=== PATIENT | female | born 1990 | race Caucasian/White ===

== ENCOUNTER 2017-01-20 08:17 | Emergency (ER) | payer OTHER ==
[2017-01-20] MEDS: IV NORMAL SALINE 1,000ML 1,000 ML IV ONE (08:57)
[2017-01-20] MEDS: ONDANSETRON PF 4 MG/2 ML VIAL. IV ONE (08:58)
[2017-01-20] MEDS: FAMOTIDINE 20 MG/2 ML VIAL IVP ONE (08:58)
[2017-01-20 08:59] LABS: BASO % 1 % (0-3); EOS # 0.2 x10^3/uL (0.0-0.7); EOS % 4 % (0-3); HEMATOCRIT 41.2 % (36.0-47.0); HEMOGLOBIN 13.9 g/dL (12.0-15.5); LYMPH # 1.7 x10^3/uL (1.0-4.8); LYMPH % 30 % (24-48); MEAN CORPUSCULAR HEMOGLOBIN 31 pg (25-35); MEAN CORPUSCULAR HGB CONC 34 g/dL (31-37); MEAN CORPUSCULAR VOLUME 92 fL (79-100); MONO # 0.5 x10^3/uL (0.0-1.1); MONO % 9 % (0-9); NEUT # 3.2 x10^3uL (1.8-7.7); NEUT % 57 % (31-73); PLATELET COUNT 197 x10^3/uL (140-400); RED BLOOD COUNT 4.48 x10^6/uL (3.50-5.40); WHITE BLOOD COUNT 5.7 x10^3/uL (4.0-11.0)
[2017-01-20 09:09] LABS: ALBUMIN 4.1 g/dL (3.4-5.0); ALBUMIN/GLOBULIN RATIO 1.2 (1.0-1.7); CALCIUM 9.1 mg/dL (8.5-10.1); CREATININE 0.8 mg/dL (0.6-1.0); GFR 86.7; POTASSIUM 3.4 mmol/L (3.5-5.1); TOTAL BILIRUBIN 0.3 mg/dL (0.2-1.0); TOTAL PROTEIN 7.6 g/dL (6.4-8.2)
[2017-01-20 10:12] VITALS: BP 123/66
--- NOTE | 2017-01-20 12:17 | EKG ---
[address] [address] Test Date: 2017-01-20 Test Time: 08:35:06 Pat Name: MIGDALIA BOLTON Department: Room: Gender: F Product Merchandiser: P3 : 1990 Requested By: ASHIA REDMOND Order Number: [id number] Reading MD: Measurements Intervals [place] Rate: 91 P: 59 WV: 188 QRS: 13 QRSD: 84 T: 31 QT: 352 QTc: 435 Interpretive Statements SINUS RHYTHM NO SPECIFIC ECG ABNORMALITIES RI6.01 Unconfirmed report No previous ECG available for comparison
--- NOTE | 2017-01-24 09:19 | ED.ADGEN ---
Past History Past Medical History: No Pertinent History Past Surgical History: No Surgical History Alcohol Use: Rarely Drug Use: None Adult General Chief Complaint Chief Complaint Left shoulder pain, neck pain, nausea HPI HPI Patient is a 26-year-old female who presents with left-sided shoulder, jaw pain and chest tightness. The onset was yesterday. No fever chills, nausea vomiting sweats. Left jaw pain radiates to her left ear. Denies dental caries, ear pain or sinus tenderness. Left shoulder pain reproduces with palpation. Patient reports nausea without vomiting and chest tightness denies chest pain. No abdominal pain. No other acute symptoms or complaints. Patient is currently a physical therapy student and was looking up her symptoms on the Internet and is concerned about possible coronary disease. Patient does not have traditional coronary risk factors nonsmoker. Review of Systems Review of Systems Review symptoms as per history of present illness. All other review symptoms are negative. Current Medications Current Medications Current Medications Medications (Trade) Dose Ordered Sig/Dung Start Time Stop Time Status Last Admin Dose Admin Famotidine 20 mg 20 mg 1X ONCE 01/20/17 08:30 01/20/17 09:00 DC 01/20/17 08:58 20 MG Ondansetron HCl (Zofran) 4 mg 1X ONCE 01/20/17 08:30 01/20/17 09:00 DC 01/20/17 08:58 4 MG Sodium Chloride (Iv Sodium Chloride 0.9% 1,000ml) 1,000 ml @ 1,000 mls/hr 1X ONCE 01/20/17 08:30 01/20/17 09:29 DC 01/20/17 08:57 1,000 MLS/HR Allergies Allergies Allergies Coded Allergies Type Severity Reaction Last Updated Verified amoxicillin Allergy Unknown 01/20/17 Yes clavulanic acid Allergy Unknown 01/20/17 Yes montelukast Allergy Unknown 01/20/17 Yes Physical Exam Physical Exam Constitutional: Well developed, well nourished, no acute distress, non-toxic appearance. HENT: Normocephalic, atraumatic, bilateral external ears normal, oropharynx moist, no oral exudates, nose normal. Eyes: PERRLA, EOMI, conjunctiva normal. Neck: Normal range of motion, no tenderness, supple. Cardiovascular:Heart rate regular rhythm, no murmur. Lungs & Thorax: Bilateral breath sounds clear to auscultation. Abdomen: Bowel sounds normal, soft, no tenderness. Skin: Warm, dry, no erythema. Back: No tenderness. Extremities: No tenderness. Neurologic: Alert and oriented X 3, normal motor function, normal sensory function, no focal deficits noted. Psychologic: Affect normal, judgement normal, mood normal. Current Patient Data Vital Signs Vital Signs Date Time Temp Pulse Resp B/P Pulse Ox O2 Delivery O2 Flow Rate FiO2 01/20/17 10:12 94 18 123/66 99 Room Air 01/20/17 08:22 98.4 Lab Results Laboratory Tests Test 01/20/17 08:39 White Blood Count 5.7x10^3/uL (4.0-11.0) Red Blood Count 4.48x10^6/uL (3.50-5.40) Hemoglobin 13.9g/dL (12.0-15.5) Hematocrit 41.2% (36.0-47.0) Mean Corpuscular Volume 92fL (79-100) Mean Corpuscular Hemoglobin 31pg (25-35) Mean Corpuscular Hemoglobin Concent 34g/dL (31-37) Red Cell Distribution Width 13.0% (11.5-14.5) Platelet Count 197x10^3/uL (140-400) Neutrophils (%) (Auto) 57% (31-73) Lymphocytes (%) (Auto) 30% (24-48) Monocytes (%) (Auto) 9% (0-9) Eosinophils (%) (Auto) 4% (0-3) H Basophils (%) (Auto) 1% (0-3) Neutrophils # (Auto) 3.2x10^3uL (1.8-7.7) Lymphocytes # (Auto) 1.7x10^3/uL (1.0-4.8) Monocytes # (Auto) 0.5x10^3/uL (0.0-1.1) Eosinophils # (Auto) 0.2x10^3/uL (0.0-0.7) Basophils # (Auto) 0.0x10^3/uL (0.0-0.2) D-Dimer (Kiesha) 0.43mg/L (0.00-0.50) Maternal Serum HCG Beta Subunit < 1mIU/mL (0-6) Sodium Level 139mmol/L (136-145) Potassium Level 3.4mmol/L (3.5-5.1) L Chloride Level 105mmol/L (98-107) Carbon Dioxide Level 27mmol/L (21-32) Anion Gap 7 (6-14) Blood Urea Nitrogen 8mg/dL (7-20) Creatinine 0.8mg/dL (0.6-1.0) Estimated GFR (Cockcroft-Gault) 86.7 BUN/Creatinine Ratio 10 (6-20) Glucose Level 104mg/dL (70-99) H Calcium Level 9.1mg/dL (8.5-10.1) Total Bilirubin 0.3mg/dL (0.2-1.0) Aspartate Amino Transferase (AST) 12U/L (15-37) L Alanine Aminotransferase (ALT) 19U/L (14-59) Alkaline Phosphatase 45U/L (46-116) L Troponin I Quantitative < 0.017ng/mL (0-0.055) Total Protein 7.6g/dL (6.4-8.2) Albumin 4.1g/dL (3.4-5.0) Albumin/Globulin Ratio 1.2 (1.0-1.7) Lipase 252U/L (73-393) EKG EKG [EKG: Normal sinus rhythm, no acute ST-T wave changes.] Radiology/Procedures Radiology/Procedures [] Impressions: Multiple medical complaints including nausea and reproducible shoulder pain. Workup unremarkable. Course & Med Decision Making Course & Med Decision Making Pertinent Labs and Imaging studies reviewed. (See chart for details) [Since improved with treatment. We'll continue supportive care with PCP follow- up. Return precautions reviewed.] Final Impression Final Impression [1. Nausea 2. Left shoulder pain] Problems: Dragon Disclaimer Dragon Disclaimer This electronic medical record was generated, in whole or in part, using a voice recognition dictation system. ASHIA REDMOND DO Jan 24, 2017 09:19
== END 2017-01-20 10:25 | disposition home or self-care (01) ==
LOC: ER 08:20
DX: M25.512 Pain in left shoulder (principal); R11.0 Nausea; R68.84 Jaw pain; R07.89 Other chest pain; Z88.1 Allergy status to other antibiotic agents; Z88.8 Allergy status to other drugs, medicaments and biological substances
CPT/HCPCS: 36415; 80053; 83690; 84484; 84702; 85027; 85379; 93005; 96361; 96374; 96375; 99285; J2405; S0028; J7030